=== PATIENT | female | born 1985 | race Caucasian/White ===

== ENCOUNTER 2024-10-03 11:24 | Emergency (ER) | payer OTHER, SELFPAY ==
[2024-10-03 11:58] VITALS: BP 149/88; PULSE 94; RESP 20; TEMP 36.6; O2SAT 96; BMI 31.0
--- NOTE | 2024-10-03 13:28 | MHC.RECOVRN ---
Methadone dose verified: Per RASHAD Esquivel at [facility] , Apryl received 155 mg of Methadone on 10/02/2024 @ 6:16AM as well as 1 take-home evening dose of 70 mg. Methadone verification delivered to pharmacy. MD velázquez.
--- NOTE | 2024-10-03 13:38 | HE.PHANOTE ---
Re: Methadone Last dose verified at [facility] for Methadone 155 mg in the AM and 1 take-home evening dose for 70 mg on 10/02/24@0616.
--- NOTE | 2024-10-03 13:46 | ED_ITS ---
HPI - General Adult General Chief complaint: General Medical Stated complaint: methadone dose Time Seen by Provider: 10/03/24 13:23 Source: patient Mode of arrival: ambulatory Limitations: no limitations History of Present Illness ED Provider: JUSTICE HPI narrative: 38 yo female with PMH of opiate use disorder, has narcan denies any medical issues requesting her AM dose of methadone 155mg that she missed. She states she feels fine otherwise no SI. MD complaint: methadone dose Onset (ago): day(s) (1) Radiation: non-radiation Severity: mild Relieving factors: none Exacerbating factors: none Associated symptoms: denies other symptoms Treatments prior to arrival: none Related Data Home Medications ?Medication ?Instructions ?Recorded ?Confirmed methadone 10 mg/mL oral 70 mg PO BEDTIME 10/03/24 10/03/24 concentrate (Methadone Intensol) methadone 10 mg/mL oral 155 mg PO DAILY 10/03/24 10/03/24 concentrate (Methadone Intensol) Allergies Allergy/AdvReac Type Severity Reaction Status Date / Time sulfamethoxazole Allergy Unknown HIVES Verified 10/03/24 12:01 [From BACTRIM] trimethoprim [From BACTRIM] Allergy Unknown HIVES Verified 10/03/24 12:01 Review of Systems Review of Systems: Constitutional : No Fever, No Chills, Cardiovascular : No Chest Pain, No SOB Respiratory : No Dyspnea Gastrointestinal : No abdominal pain Musculoskeletal : No Joint Swelling Skin : No rash, no skin laceration Neuro : No Weakness, No Numbness Psych : No SI/HI All other systems reviewed and are negative PMFSH Past Medical History Attestation statement: The following information was validated with the patient. Source: old records reviewed Medical History (Updated 10/03/24 @ 14:04 by Rita Jane DO) Opiate use Social History Social History (Updated 10/03/24 @ 14:04 by Rita Jane DO) Patient Tobacco Use Status: Tobacco use Unknown Physical Exam ED Vital Signs: Vital Signs - 24 hr 10/03/24 11:58 Temperature 97.8 F Pulse Rate 94 Respiratory Rate 20 Blood Pressure 149/88 H Pulse Oximetry 96 Oxygen Delivery Method Room Air BMI result Body Mass Index 31.0 Appearance: Alert. Oriented X3. No acute distress. Eyes: Pupils equal, round and reactive to light. ENT: Pharynx normal. Neck: Normal inspection. Neck supple. CVS: Normal heart rate and rhythm. Pulses normal. Respiratory: No respiratory distress. Breath sounds normal. Abdomen: Soft and nontender. Skin: Skin warm and dry. Normal skin color. Extremities: No lower extremity edema. Neuro: Oriented X 3. No motor deficit. No sensory deficit. CN2-12 intact Medical Decision Making Medical Decision Making MDM Narrative: 38 yo female no medical or psychiatric complaints at this time patient requesting her AM dose of methadone which we confirmed. Will dose and request she follow up with her clinic. Unable to provide home dose. Differential Diagnosis Differential Diagnoses: The differential diagnosis associated with the presentation includes opiate use disorder Independent Historian Clinical information obtained from an independent historian. History obtained from or confirmed by: Spouse External Record Review External record reviewed: Outpatient record Discharge Plan Discharge Clinical Impression: Methadone use Patient Disposition: Home, Self-Care Instructions: Narcotic Use Disorder (ED) Additional Instructions: patient was given 155mg at [facility] on 10/03/24 return for any worsening symptoms or concerns. Prescriptions: No Action methadone [Methadone Intensol] 10 mg/mL Concentrate 155 mg PO DAILY methadone [Methadone Intensol] 10 mg/mL Concentrate 70 mg PO BEDTIME Print Language: Lebanese
--- OUTSIDE RECORDS SUMMARY | 2024-10-03 14:00 | XMS_ITS | Clinical Summary ---
Author Organization [facility] Address [address] [place] [address] Care Team Providers Care Commercial Finance Analyst Name Role Phone Unavailable Primary Care Provider Unavailabl e Source Comments PLEASE NOTE, if this patient is a minor, it may be UNLAWFUL to discuss sensitive information that is contained in these records (such as FAMILY PLANNING, MENTAL HEALTH or SUBSTANCE ABUSE) with the minor patient's parent or other person without the patient's specific authorization.[facility] Social History Tobacco Use Types Packs/Day Years Used Date Smoking Tobacco: Never Assessed Social Connections Answer Date Recorded Social Connections and Isolation 0 05/04/2019 Financial Resource Strain Answer Date R ecorded Financial Resource Strain 0 2018 Stress Answer Date Recorded Stress 0 05/04/2019 Physical Activity Answer Date Recorded Physical Activity 0 05/04/2019 Food Insecurity Answer Date Recorded Food 0 05/04/2019 Transportation Needs Answer Date Record ed Transportation 0 05/04/2019 Housing Stability Answer Date Recorded Housing 0 05/04/2019 Safety and Environment Answer Date Christian rded Safety 0 05/04/2019 Utilities Answer Date Recorded Utilities 0 05/04/2019 Employment Answer Date Recorded Employment 0 05/04/2019 Comments Unknown Sex and Gender Information Value Date Recorded Sex Assigned at Not on file Legal Sex Female 9:15 AM PDT Gender Identity Not on file Sexual Orientation Not on file Plan of Treatment Not on file
--- OUTSIDE RECORDS SUMMARY | 2024-10-03 14:00 | XMS_ITS | Clinical Summary ---
Author Organization [facility] Address [address] [place] [address] Care Team Providers Care Interior Decorator Name Role Phone Unavailable Primary Care Provider Unavailabl e Social History Tobacco Use Types Packs/Day Years Used Date Smoking Tobacco: Never Assessed Sex and Gender Information Value Date Recorded Sex Assigned at Not on file Gender Identity Not on file Sexual Orientation Not on file Plan of Treatment Health Maintenance Due Date Last Done Comments DTaP,Tdap,and Td Vaccines (1 - Tdap) 2005 Hepatitis B Vaccines (1 of 3 - 19+ 3-dose series) 2005 Cervical Cancer Screening: P ap Smear 2007 Depression Screening 08/12/2022 HIV Screening 08/12/2022 Hepatitis C Screening 08/12/2022 Social Influencers of Health Screening 08/12/2022 COVID-19 Vaccine ( - 2023-2 5 season) 2024 Influenza Vaccine (#1) 2024 HIB Vaccines Aged Out No longer eligi ble based on patient's age to complete this topic HPV Vaccines Aged Out No longer eligi ble based on patient's age to complete this topic Hepatitis A Vaccines Aged Out No long er eligible based on patient's age to complete this topic IPV Vaccines Aged Out No longer eligi ble based on patient's age to complete this topic MMR Vaccines Aged Out No longer eligi ble based on patient's age to complete this topic Meningococcal ACWY Vaccine Aged Out N o longer eligible based on patient's age to complete this topic Pneumococcal Vaccine: Pediat rics (0 to 5 Years) and At-Risk Patients (6 to 64 Years) Aged Out No longer eligible b ased on patient's age to complete this topic RSV Immunization Patients Un justo 20 months Aged Out No longer eligible b ased on patient's age to complete this topic Varicella Vaccines Aged Out No longer eligible based on patient's age to complete this topic
[2024-10-03] MEDS: methADONE HCl 20 MG/2 ML ORAL.CONC 155 MG PO (14:02)
[2024-10-03 14:07] VITALS: BP 149/88; PULSE 94; RESP 20; TEMP 36.6; O2SAT 96
== END 2024-10-03 14:12 | disposition home or self-care (01) ==
PROVIDERS: Emergency Provider Emergency Medicine; PCP Family Medicine
DX: F11.20 Opioid dependence, uncomplicated (principal)
CPT/HCPCS: 99282; 99283